=== PATIENT | female | born 1995 | race African-American/Black ===

== ENCOUNTER 2016-12-26 13:31 | Emergency (ER) | payer OTHER ==
[2016-12-26 13:52] VITALS: BMI 26.9
[2016-12-26 15:35] LABS: URINE APPEARANCE CLEAR; URINE BILIRUBIN NEGATIVE (NEGATIVE); URINE BLOOD NEGATIVE (NEGATIVE); URINE COLOR LTYELLOW; URINE GLUCOSE (UA) NEGATIVE (NEGATIVE); URINE KETONE NEGATIVE (NEGATIVE); URINE LEUK ESTERASE NEGATIVE (NEGATIVE); URINE NITRITE NEGATIVE (NEGATIVE); URINE PROTEIN NEGATIVE (NEGATIVE); URINE UROBILINOGEN NEGATIVE E.U./dl (0.2-1.0)
--- NOTE | 2016-12-26 16:08 | PDOC ---
History of Present Illness - General History Source: Patient Exam Limitations: No Limitations - History of Present Illness Initial Comments: 12/26/16 17:53 The patient is a 20 year old female, , with no significant past medical history who presents to the emergency department with abdominal pain and back pain for 3 days. Patient states that the abdominal pain is localized to the epigastric area and is cramping in nature and radiates down to the lower abomen. She states that her back pain is localized to the mid back between the shoulder blades and is exacerbated by taking a deep breath but also by itself occasionally without any breathing. Patient states that she took a home test that was positive yesterday. Patient woke up today with nasal congestion. Pt denies any cough, SUMMERS, hemoptysis, leg swelling. LMP 11/28/16 Denies fever, chills, hemoptysis, sob, chest pain, nausea, vomiting, diarrhea, vomiting, diaphoresis, numbness/tingling/weakness and headache Denies dysuria, hematuria, urinary urgency or frequency Denies any vaginal discharge or bleeding. <Sudha Eckert - Last Filed: 12/26/16 20:04> <Fabián Vera - Last Filed: 12/27/16 19:23> - General Chief Complaint: Pain, Acute Stated Complaint: BACK PAIN/CRAMPING Time Seen by Provider: 12/26/16 16:07 Past History <Sudha Eckert - Last Filed: 12/26/16 20:04> - Past Medical History Disorders: Yes (endometriosis, ovarian cyst) - Reproductive History (#): 1 Para: 0 Cervical CA: No Dysfunctional Uterine Bleeding: No Ectopic : No Endometrial CA: No Polycystic Ovaries: No Tubal Ligation: No - Immunization History Immunization Up to Date: Yes - Psycho/Social/Smoking Cessation Hx Anxiety: No Suicidal Ideation: No Smoking History: Never smoked Have you smoked in the past 12 months: No Number of Cigarettes Smoked Daily: 1 Information on smoking cessation initiated: No Hx Alcohol Use: No Drug/Substance Use Hx: No Substance Use Type: Marijuana <Fabián Vera - Last Filed: 12/27/16 19:23> - Past Medical History Allergies/Adverse Reactions: Allergies Allergy/AdvReac Type Severity Reaction Status Date / Time No Known Allergies Allergy Verified 12/26/16 13:52 Home Medications: Ambulatory Orders NK [No Known Home Medication] 07/21/16 Review of Systems - Review of Systems Able to Perform ROS?: Yes Comments:: 12/26/16 17:54 CONSTITUTIONAL: No reported: Fever, Chills, Diaphoresis, Generalized Weakness, Malaise, Loss of Appetite HEENT: Reported: nasal congestion No reported: Rhinorrhea,Throat Pain, Throat Swelling, Difficulty Swallowing, Mouth Swelling, Ear Pain, Eye Pain, Visual Changes CARDIOVASCULAR: No reported: Chest Pain, Syncope, Palpitations, Irregular Heart Rate, Lightheadedness, Peripheral Edema RESPIRATORY: No reported: Cough, Shortness of Breath, SOB with Exertion, Orthopnea, Wheezing , Stridor, Hemoptysis GASTROINTESTINAL: Present: abdominal pain No reported: Abdominal Distension, Nausea, Vomiting, Diarrhea, Constipation, Melena, Hematochezia GENITOURINARY: No reported: Dysuria, Frequency, Urgency, Hesitancy, Flank Pain, Genital Pain MUSCULOSKELETAL: Reported: back pain No reported: Myalgia, Arthralgia, Joint Swelling, Back pain, Neck Pain SKIN: No reported: Rash, Itching, Pallor HEMEATOLOGIC/IMMUNOLOGIC: No reported: Easy Bleeding, Easy Bruising, Lymphadenopathy, Frequent infections ENDOCRINE: No reported: Unexplained Weight Gain, Unexplained Weight Loss, Heat Intolerance , Cold Intolerance NEUROLOGIC: No reported: Headache, Focal Weakness, Paresthesias, Vertigo, Lightheadedness, Unsteady Gait, Seizure, Mental Status Changes, Incontinence PSYCHIATRIC: No reported: Anxiety, Depression <Sudha Eckert - Last Filed: 12/26/16 20:04> *Physical Exam - Vital Signs Last Vital Signs Temp Pulse Resp BP Pulse Ox 100.2 F H 99 H 18 116/62 12/26/16 13:49 12/26/16 13:49 12/26/16 13:49 12/26/16 13:49 - Physical Exam Comments: 12/26/16 17:54 GENERAL: The patient is awake, alert, and fully oriented, Nontoxic - in no acute distress. HEAD: Normocephalic, atraumatic. EYES: extraocular movements intact, sclera anicteric, conjunctiva clear. ENT: Normal voice, Moist mucous membranes. NECK: Normal range of motion, supple LUNGS: Breath sounds equal, clear to auscultation bilaterally. No wheezes, no rhonchi, no rales. HEART: Regular rate and rhythm, normal S1 and S2 without murmur, rub or gallop. ABDOMEN: Soft, nontender, normoactive bowel sounds. No guarding, no rebound. No CVA tenderness EXTREMITIES: Normal range of motion, no edema. No clubbing or cyanosis. No cords, erythema, or tenderness. NEUROLOGICAL: No facial assymetry, Normal speech, PSYCH: Normal mood, normal affect. SKIN: Warm, Dry, normal turgor, <Sudha Eckert - Last Filed: 12/26/16 20:04> - Vital Signs Last Vital Signs Temp Pulse Resp BP Pulse Ox 100.2 F H 99 H 18 116/62 12/26/16 13:49 12/26/16 13:49 12/26/16 13:49 12/26/16 13:49 <Fabián Vera - Last Filed: 12/27/16 19:23> ED Treatment Course - LABORATORY CBC & Chemistry Diagram: 12/26/16 16:08 12/26/16 16:40 - ADDITIONAL ORDERS Additional order review: Laboratory Results 12/26/16 12/26/16 16:40 15:17 Sodium 138 Potassium 4.5 Chloride 105 Carbon Dioxide 26 Anion Gap 7 L BUN 16 D Creatinine 1.0 D Creat Clearance w eGFR > 60 Random Glucose 56 L D Calcium 8.7 Total Bilirubin 0.4 D AST 16 D ALT 15 Alkaline Phosphatase 106 Total Protein 7.2 Albumin 3.7 Urine Color Ltyellow Urine Appearance Clear Urine pH 6.0 Urine Protein Negative Urine Glucose (UA) Negative Urine Ketones Negative Urine Blood Negative Urine Nitrite Negative Urine Bilirubin Negative Urine Urobilinogen Negative Ur Leukocyte Esterase Negative Urine HCG, Qual Positive 12/26/16 16:08 RBC 4.34 MCV 86.1 MCHC 32.7 RDW 13.5 MPV 10.0 Neutrophils % 46.0 Lymphocytes % 35.9 Monocytes % 13.5 H Eosinophils % 3.8 Basophils % 0.8 <Sudha Eckert - Last Filed: 12/26/16 20:04> - LABORATORY CBC & Chemistry Diagram: 12/26/16 16:08 12/26/16 16:40 - ADDITIONAL ORDERS Additional order review: Laboratory Results 12/26/16 15:17 Urine Color Ltyellow Urine Appearance Clear Urine pH 6.0 Urine Protein Negative Urine Glucose (UA) Negative Urine Ketones Negative Urine Blood Negative Urine Nitrite Negative Urine Bilirubin Negative Urine Urobilinogen Negative Ur Leukocyte Esterase Negative Urine HCG, Qual Positive <Fabián Vera - Last Filed: 12/27/16 19:23> Medical Decision Making - Medical Decision Making 12/26/16 16:24 21y F at approx 4-5 weeks gestation presents with abd cramping x 3 days w/ o n/v, f/c, diarrhea, upper back pain that seems pleuritic but sometimes hurst by itself for 1 week w/o cough/hemoptysis/leg swelling. pts exam is unremarakble and pt is well appearing w/o any acute distress. her ua noted for +hcg will ck labs, ua, bhcg willl give tylenol will ck tv US 12/26/16 19:53 pts US is negative pts Beta is below discrminatory zone dimer was obtained initially due to consideration of PE, however do no tthink that is likely. pt has no sob, sat is normal and not tachycardic. her pain is also reproducible on palpation. will defer CTA due to low susupicion of PE and risk of radiation exposure during early . will dc the pt to [facility] w dr. Luz next week or return to ED to repeat beta and US I discussed the physical exam findings, ancillary test results and final diagnoses with the patient. I answered all of the patient's questions. The patient was satisfied with the care received and felt comfortable with the discharge plan and treatment plan. The patient will call their primary care physician within 24 hours to arrange follow-up and will return to the Emergency Department with any new, persistent or worsening symptoms. <Fabián Vera - Last Filed: 12/27/16 19:23> *DC/Admit/Observation/Transfer - Attestations Scribe Attestion: 12/26/16 17:54 Documentation prepared by LINA Noyola, acting as medical office professional instructor for Fabián Vera MD. <Sudha Eckert - Last Filed: 12/26/16 20:04> - Discharge Dispostion Admit: No <Fabián Vera - Last Filed: 12/27/16 19:23> Diagnosis at time of Disposition: Qualifiers: Weeks of gestation: less than 8 weeks Qualified Code(s): Z3A.01 - Less than 8 weeks gestation of - Discharge Dispostion Disposition: HOME Condition at time of disposition: Improved - Referrals Referrals: Klaus Amor PA [Primary Care Provider] - Jaime Givens MD [Staff Physician] - - Patient Instructions Printed Discharge Instructions: DI for -- Discomforts and Remedies Additional Instructions: Return to the emergency department immediately with ANY new, persistent or worsening symptoms including any worsening abdominal pain, fevers, chills, vomiting, vaginal bleeding or other concerns. Your beta HCG was 148, which is extremely low. You are either extremely early in your or you may be miscarrying. Return in 48-72hrs to repeta your beta and US. You MUST call and follow up with your doctor tomorrow for further evaluation of your symptoms. Results were discussed with you. Please make sure your doctor reviews the results of your emergency evaluation. Print Language: SCOTTISH
[2016-12-26] MEDS ORDERED: ACETAMINOPHEN 325 MG TABLET (FP) PO ONE (16:22)
[2016-12-26 16:47] LABS: BASOPHIL 0.8 % (0-2.0); EOSINOPHIL 3.8 % (0-4.5); MCH 28.1 pg (25.7-33.7); MCHC 32.7 g/dl (32.0-36.0); MEAN CELL VOLUME 86.1 fl (80-96); PLATELET COUNT 261 K/MM3 (134-434); RDW 13.5 % (11.6-15.6); WHITE BLOOD COUNT 5.5 K/mm3 (4.0-10.0)
[2016-12-26 17:07] LABS: ALBUMIN 3.7 g/dl (3.4-5.0); ALK PHOS 106 U/L (45-117); ANION GAP 7 (8-16); BILIRUBIN,TOTAL 0.4 mg/dL (0.2-1.0); CALCIUM 8.7 mg/dL (8.5-10.1); CO2 26 mmol/L (21-32); GLUCOSE,RANDOM 56 mg/dL (74-106); SGOT/AST 16 U/L (15-37); SGPT/ALT 15 U/L (12-78); TOT PROT 7.2 g/dl (6.4-8.2)
[2016-12-26] MEDS ORDERED: ACETAMINOPHEN 325 MG TABLET (FP) ONE (18:08)
[2016-12-26 19:23] VITALS: BP 122/75; PULSE 69; TEMP 98.5
== END 2016-12-26 20:06 | disposition home or self-care (01) ==
LOC: JER 13:31
DX: O26.891 Other specified pregnancy related conditions, first trimester (principal); Z3A.01 Less than 8 weeks gestation of pregnancy
CPT/HCPCS: 36415; 76817-TC; 80053; 81003; 84702; 84703; 85025; 85379; 99283-25